=== PATIENT | male | born 1945 | race Caucasian/White ===

== ENCOUNTER 2016-07-23 17:01 | Outpatient (CLI) | payer MEDICARE, OTHER | END 2016-07-23 17:02 | disposition home or self-care (01) | DX: Z12.5 Encounter for screening for malignant neoplasm of prostate (principal); N52.9 Male erectile dysfunction, unspecified; N40.1 Benign prostatic hyperplasia with lower urinary tract symptoms; E78.5 Hyperlipidemia, unspecified; K21.9 Gastro-esophageal reflux disease without esophagitis; M72.0 Palmar fascial fibromatosis [Dupuytren]; I10 Essential (primary) hypertension | CPT/HCPCS: 36415; 80053; 80061; 85025; G0103 ==

== ENCOUNTER 2019-04-07 07:30 | Outpatient (CLI) | payer MEDICARE, BC ==
[2019-04-07 12:05] LABS: BASOPHILS % (AUTO) 0.6 %; EOSINOPHILS # (AUTO) 0.1 10^3/uL (0.0-0.7); EOSINOPHILS % (AUTO) 2.8 %; HGB - HEMOGLOBIN 14.1 g/dL (14.0-18.0); LYMPHOCYTES # (AUTO) 2.1 10^3/uL (1.5-3.5); LYMPHOCYTES % (AUTO) 42.9 %; MEAN CORPUSCULAR HEMOGLOBIN 30.9 pg (27.0-31.0); MEAN CORPUSCULAR HGB CONC 33.6 g/dL (32.0-36.0); MEAN CORPUSCULAR VOLUME 92.1 fL (80.0-94.0); MONOCYTES # (AUTO) 0.4 10^3/uL (0.0-1.0); MONOCYTES % (AUTO) 8.9 %; NEUTROPHILS # (AUTO) 2.2 10^3/uL (1.5-6.6); NEUTROPHILS % (AUTO) 44.6 %; PLT - PLATELET COUNT 281 10^3/uL (130-450); RED BLOOD COUNT 4.56 10^6/uL (4.70-6.10); RED CELL DISTRIBUTION WIDTH 15.2 % (12.0-15.0); WHITE BLOOD COUNT 4.9 x10^3/uL (4.8-10.8)
[2019-04-07 12:27] LABS: ALBUMIN 4.3 g/dL (3.2-5.5); ALBUMIN/GLOBULIN RATIO 1.5 (1.0-2.2); ALKALINE PHOSPHATASE 53 IU/L (42-121); ALT ALANINE AMINOTRANSFERASE 27 IU/L (10-60); AST ASPARTATE AMINOTRANSFERASE 30 IU/L (10-42); BUN - BLOOD UREA NITROGEN 17 mg/dL (6-20); CARBON DIOXIDE - CO2 26 mmol/L (21-32); CHLORIDE 105 mmol/L (101-111); CHOL/HDL RATIO 3.8 (<5.0); CHOLESTEROL 174 mg/dL; GFR - MDRD 73 (>89); GLUCOSE 94 mg/dL (70-100); HDL CHOLESTEROL 46 mg/dL; LDL CHOLESTEROL,CALCULATED 112 mg/dL; LDL/HDL RATIO 2.4 (<3.6); SODIUM 139 mmol/L (135-145); TOTAL PROTEIN 7.2 g/dL (6.7-8.2); VLDL CHOLESTEROL 16 mg/dL
[2019-04-07 12:29] LABS: CREATININE,URINE 154.1 mg/dL; MICROALBUM/CREATININE RATIO,UR 4.5 ug/mg (<30.0); MICROALBUMIN,URINE 0.7 mg/dL (0-300.0)
[2019-04-07 12:33] LABS: HB2 TOTAL 13.7 g/dL; HEMOGLOBIN A1C 0.57 g/dL
== END 2019-04-07 23:59 | disposition home or self-care (01) ==
LOC: LAB.WCP 07:30
PROVIDERS: ATTEND Family Medicine
DX: I10 Essential (primary) hypertension (principal); R73.01 Impaired fasting glucose; E78.5 Hyperlipidemia, unspecified; K21.9 Gastro-esophageal reflux disease without esophagitis; Z12.5 Encounter for screening for malignant neoplasm of prostate; R53.83 Other fatigue
CPT/HCPCS: 36415; 80053; 80061; 82043; 82570; 83036; 84443; 85025; G0103; 83721; 84153

== ENCOUNTER 2019-12-30 09:46 | Outpatient (CLI) | payer MEDICARE, BC ==
--- NOTE | 2019-12-30 10:41 | XRAY Report ---
PROCEDURE: Cervical Spine 2 View INDICATIONS: ARTHRITIS,CERVICAL SPINE TECHNIQUE: 2 view(s) of the cervical spine were acquired. COMPARISON: None. FINDINGS: Bones: No fractures or dislocations to the C7-T1 level. The lateral masses of C1 appear intact on t he odontoid view. No suspicious bony lesions. Moderate to severe multilevel disc space narrowing. No bridging anterior osteophytes. Soft tissues: No prevertebral soft tissue swelling. IMPRESSION: Multilevel degenerative changes. Reviewed by: Caterina Calhoun MD on 12/30/2019 10:40 AM PDT Approved by: Caterina Calhoun MD on 12/30/2019 10:40 AM PDT Station ID: [id number]
== END 2019-12-30 09:47 | disposition home or self-care (01) ==
LOC: DI 09:46
PROVIDERS: ATTEND Family Medicine
DX: M47.812 Spondylosis without myelopathy or radiculopathy, cervical region (principal)
CPT/HCPCS: 72040

== ENCOUNTER 2020-01-10 10:08 | Outpatient (CLI) | payer MEDICARE, BC ==
--- NOTE | 2020-01-10 11:22 | MRI Report ---
PROCEDURE: Cervical Spine W/O INDICATIONS: CERVICAL DISC DISORDER W/ RADICULOPATHY TECHNIQUE: Noncontrast sagittal T1 spin echo and T2 fast spin echo, sagittal STIR, foraminal oblique sagittal T2 fast spin echo, and axial gradient echo or T2 fast spin echo through the cervical spine. COMPARISON: Plain films dated 12.30.19 FINDINGS: Image quality: Excellent. Alignment and Curvature: There is mild, grade 1 retrolisthesis of C2 on C3 and C3 on C4. Mild grade 1 retrolisthesis of C5 on C6.. Bone Marrow: Marrow demonstrates normal overall signal. Spinal Cord: Visualized spinal cord has normal size and signal. No cerebellar tonsillar herniation. Paraspinous Soft Tissues: No paravertebral masses. Prevertebral soft tissues are normal in thicknes s. C2-C3: Mild disc desiccation and diffuse disc bulge with superimposed small central protrusion. Mild facet and uncovertebral hypertrophy. Mild canal stenosis. Mild bilateral foraminal stenosis. C3-C4: Mild disc height loss and desiccation. Mild diffuse disc bulge with superimposed left director phone olateral broad-based protrusion. Moderate facet and uncovertebral hypertrophy bilaterally. Mild canal stenosis. Severe bilateral foraminal stenosis. Bilateral C4 nerve root compression. C4-C5: Mild disc height loss and desiccation. Mild diffuse disc bulge. Mild facet and uncovertebral hypertrophy bilaterally. Mild canal stenosis. Mild bilateral foraminal stenosis. C5-C6: Moderate disc height loss and desiccation. Mild diffuse disc bulge with superimposed broad-ba sed right posterolateral broad-based protrusion/osteophyte. Moderate facet and uncovertebral hypertro phy bilaterally. Moderate canal stenosis. Severe bilateral foraminal stenosis. Bilateral C6 nerve jorge t compression. C6-C7: Moderate disc height loss and desiccation. Mild diffuse disc bulge. Moderate facet and uncove rtebral hypertrophy bilaterally. Mild canal stenosis. Severe bilateral foraminal stenosis with bilate ral C7 nerve root compression. C7-T1: Mild disc height loss and desiccation. Mild diffuse disc bulge. Mild facet and uncovertebral hypertrophy bilaterally. Mild canal stenosis. Mild bilateral foraminal stenosis. IMPRESSION: 1. Multilevel degenerative disc and facet disease, as well as uncovertebral hypertrophy. 2. Multilevel canal stenoses, worst at C5-C6, where there is moderate canal stenosis. 3. Multilevel foraminal stenoses, worst at C3-C4, C5-C6, and C6-C7, where there is associated intrafo raminal nerve root compression. Recommend correlation with clinical symptoms to ascertain relevance o f these findings. Reviewed by: Daniel Britton MD on 01/10/2020 11:20 AM PDT Approved by: Daniel Britton MD on 01/10/2020 11:20 AM PDT Station ID: [id number]
== END 2020-01-10 10:09 | disposition home or self-care (01) ==
LOC: DI 10:08
PROVIDERS: ATTEND Family Medicine
DX: M47.812 Spondylosis without myelopathy or radiculopathy, cervical region (principal); M50.31 Other cervical disc degeneration, high cervical region; M48.02 Spinal stenosis, cervical region; M43.12 Spondylolisthesis, cervical region; M50.21 Other cervical disc displacement, high cervical region; M47.813 Spondylosis without myelopathy or radiculopathy, cervicothoracic region; M48.03 Spinal stenosis, cervicothoracic region
CPT/HCPCS: 72141

== ENCOUNTER 2020-05-30 08:00 | Outpatient (CLI) | payer MEDICARE, BC ==
[2020-05-30 12:15] LABS: BASOPHILS % (AUTO) 0.2 %; HCT - HEMATOCRIT 41.2 % (42.0-52.0); HGB - HEMOGLOBIN 13.7 g/dL (14.0-18.0); LYMPHOCYTES # (AUTO) 0.5 10^3/uL (1.5-3.5); LYMPHOCYTES % (AUTO) 10.3 %; MEAN CORPUSCULAR HEMOGLOBIN 30.3 pg (27.0-31.0); MEAN CORPUSCULAR HGB CONC 33.3 g/dL (32.0-36.0); MEAN CORPUSCULAR VOLUME 91.2 fL (80.0-94.0); MEAN PLATELET VOLUME 10.1 fL (7.4-11.4); MONOCYTES # (AUTO) 0.4 10^3/uL (0.0-1.0); MONOCYTES % (AUTO) 6.8 %; NEUTROPHILS # (AUTO) 4.2 10^3/uL (1.5-6.6); NEUTROPHILS % (AUTO) 82.5 %; PLT - PLATELET COUNT 230 10^3/uL (130-450); RED BLOOD COUNT 4.52 10^6/uL (4.70-6.10); RED CELL DISTRIBUTION WIDTH 14.7 % (12.0-15.0); WHITE BLOOD COUNT 5.1 x10^3/uL (4.8-10.8)
[2020-05-30 12:22] LABS: ALBUMIN 3.9 g/dL (3.2-5.5); ALBUMIN/GLOBULIN RATIO 1.3 (1.0-2.2); ALKALINE PHOSPHATASE 45 IU/L (42-121); ALT ALANINE AMINOTRANSFERASE 30 IU/L (10-60); AST ASPARTATE AMINOTRANSFERASE 30 IU/L (10-42); BILIRUBIN,TOTAL 0.7 mg/dL (0.2-1.0); BUN - BLOOD UREA NITROGEN 17 mg/dL (6-20); CALCIUM 8.7 mg/dL (8.5-10.3); CARBON DIOXIDE - CO2 23 mmol/L (21-32); CHLORIDE 99 mmol/L (101-111); CHOL/HDL RATIO 3.1 (<5.0); CHOLESTEROL 148 mg/dL; CREATININE 1.1 mg/dL (0.6-1.2); GFR - MDRD 65 (>89); GLUCOSE 116 mg/dL (70-100); HDL CHOLESTEROL 48 mg/dL; LDL CHOLESTEROL,CALCULATED 91 mg/dL; LDL/HDL RATIO 1.9 (<3.6); POTASSIUM 3.6 mmol/L (3.5-5.0); SODIUM 132 mmol/L (135-145); TRIGLYCERIDES 44 mg/dL; VLDL CHOLESTEROL 9 mg/dL
[2020-05-30 12:30] LABS: THYROID STIMULATING HORMONE 0.77 uIU/mL (0.34-5.60)
== END 2020-05-30 23:59 | disposition home or self-care (01) ==
LOC: LAB.WCP 08:00
PROVIDERS: ATTEND Internal Medicine
DX: R53.83 Other fatigue (principal); R73.01 Impaired fasting glucose; I10 Essential (primary) hypertension; E78.5 Hyperlipidemia, unspecified; Z12.5 Encounter for screening for malignant neoplasm of prostate; N40.1 Benign prostatic hyperplasia with lower urinary tract symptoms; N13.8 Other obstructive and reflux uropathy; R50.9 Fever, unspecified; M79.10 Myalgia, unspecified site; Z20.822 Contact with and (suspected) exposure to COVID-19
CPT/HCPCS: 36415; 80053; 80061; 84443; 85025; G0103; U0004; 83721; 84153

== ENCOUNTER 2020-05-30 17:37 | Outpatient (CLI) | payer MEDICARE, BC | END 2020-05-30 17:38 | disposition home or self-care (01) | LOC: COV 17:37 | PROVIDERS: ATTEND Family Medicine | DX: R50.9 Fever, unspecified (principal); M79.10 Myalgia, unspecified site; R53.83 Other fatigue; Z20.822 Contact with and (suspected) exposure to COVID-19 ==

== ENCOUNTER 2021-01-31 19:28 | Outpatient (CLI) | payer MEDICARE, BC ==
--- NOTE | 2021-01-31 21:27 | Ultrasound Report ---
PROCEDURE: Duplex Ext Veins Right INDICATIONS: edema TECHNIQUE: Real-time imaging, as well as color and pulse Doppler interrogation, were performed of the lower extr emity deep veins from the inguinal ligament to the popliteal fossa. COMPARISON: None. FINDINGS: The deep veins are normally compressible, and free of intraluminal thrombus. Color and pu lse Doppler demonstrate normal phasic intraluminal flow. There is normal augmentation response to di stal compression maneuver. IMPRESSION: No right lower extremity DVT. Reviewed by: Klaus Chatman MD on 01/31/2021 9:26 PM PST Approved by: Klaus Chatman MD on 01/31/2021 9:26 PM PST Station ID: [id number]
== END 2021-01-31 19:29 | disposition home or self-care (01) ==
LOC: DI 19:28
PROVIDERS: ATTEND Physician Assistant Medical
DX: R60.9 Edema, unspecified (principal)

== ENCOUNTER 2022-01-06 21:26 | Day surgery (SDC) | payer MEDICARE, BC ==
[~2022-01-06 21:26] MED LIST: LACTATED RINGERS 1,000 ML IV ONE
--- NOTE | 2022-01-06 21:41 | ED Physician Documentation ---
History of Present Illness - Stated complaint Stated Complaint: OBJECT IN THROAT - Chief complaint Chief Complaint: Heent - History obtained from History obtained from: Patient - History of Present Illness Timing: Enter time (17:30) Pain level now: 4 Improved by: no ameliorating factors Worsened by: any PO intake including fluids exacerbates the pain - Additonal information Additional information: c/o sudden onset low midline chest pain while eating dinner at approximately 5 :30 PM. He was eating pasta with chicken and had just swallowed food when the pain began. Since onset he has not been able to tolerate any PO including sips of liquids. He says he has had a few previous, similar episodes but previous episodes were self-limited and thus he has not been evaluated for this until tonight Review of Systems Cardiac: reports: Chest pain / pressure. denies: Palpitations Respiratory: reports: Reviewed and negative GI: reports: Vomiting (vomits when he tries to take any PO). denies: Abdominal Pain, Abdominal Swelling, Nausea PD PAST MEDICAL HISTORY - Past Medical History Past Medical History: Yes Cardiovascular: Hypertension, High cholesterol GI: GERD - Past Surgical History Past Surgical History: No - Allergies Allergies/Adverse Reactions: Allergies Allergy/AdvReac Type Severity Reaction Status Date / Time No Known Drug Allergies Allergy Verified 01/06/22 21:34 PD ED PE NORMAL - Vitals Vital signs reviewed: Yes - General General: Alert and oriented X 3, Well developed/nourished, Other (appears uncomfortable at times during H+P; he is holding emesis bag and frequently spits saliva into this) - Cardiac Cardiac: RRR, No murmur - Respiratory Respiratory: No respiratory distress, Clear bilaterally - Abdomen Abdomen: Soft, Non tender, Non distended - Derm Derm: Normal color, Warm and dry Results - Vitals Vitals: Vital Signs - 24 hr 01/06/22 01/06/22 01/07/22 21:34 23:37 00:35 Temperature 36.6 C 36.6 C 36.4 C L Heart Rate 77 67 77 Respiratory 16 16 17 Rate Blood Pressure 160/90 H 162/90 H 135/77 H O2 Saturation 96 99 97 01/07/22 01/07/22 01/07/22 00:40 00:47 00:50 Temperature Heart Rate 92 90 83 Respiratory 18 19 16 Rate Blood Pressure 128/75 118/76 129/74 O2 Saturation 96 98 97 01/07/22 01/07/22 01/07/22 00:55 01:04 01:25 Temperature 36.4 C L 36.4 C L Heart Rate 80 81 89 Respiratory 16 16 16 Rate Blood Pressure 134/70 H 136/70 H 145/87 H O2 Saturation 97 97 96 01/07/22 01/07/22 01/07/22 01:38 01:54 02:09 Temperature 36.5 C 36.4 C L 36.3 C L Heart Rate 69 70 76 Respiratory 16 18 18 Rate Blood Pressure 130/71 129/70 129/70 O2 Saturation 96 96 95 01/07/22 01/07/22 01/07/22 02:39 03:08 04:09 Temperature 36.9 C 36.7 C 36.5 C Heart Rate 78 76 75 Respiratory 18 18 18 Rate Blood Pressure 126/74 130/79 124/75 O2 Saturation 96 96 95 01/07/22 01/07/22 01/07/22 05:07 06:13 07:29 Temperature 36.8 C 36.5 C 36.9 C Heart Rate 69 72 66 Respiratory 18 18 16 Rate Blood Pressure 123/73 127/72 127/77 O2 Saturation 96 95 95 Oxygen O2 Source Room air - Labs Labs: Laboratory Tests 01/06/22 01/06/22 22:12 22:12 WBC 7.4 RBC 4.97 Hgb 14.9 Hct 44.8 MCV 90.1 MCH 30.0 MCHC 33.3 RDW 14.5 Plt Count 311 MPV 9.7 Neut # (Auto) 4.1 Lymph # (Auto) 2.5 [place] # (Auto) 0.6 Eos # (Auto) 0.1 Baso # (Auto) 0.1 Absolute Nucleated RBC 0.00 Nucleated RBC % 0.0 Sodium 140 Potassium 3.8 Chloride 105 Carbon Dioxide 25 Anion Gap 10.0 BUN 15 Creatinine 1.0 Estimated GFR (MDRD) 73 L Glucose 103 H Calcium 9.7 Total Bilirubin 0.6 AST 29 ALT 25 Alkaline Phosphatase 58 Total Protein 8.0 Albumin 4.5 Globulin 3.5 Albumin/Globulin Ratio 1.3 Lipase 63 H PD MEDICAL DECISION MAKING - ED course Complexity details: reviewed results, re-evaluated patient, considered differential, d/w patient ED course: HPI c/w esophageal food bolus impaction, does not improve after IV glucagon 1mg. He did try to drink some water after the glucagon was given but immediately vomited the water back up, felt like it never went all the way down. D/W Dr. Cannon who came to ED and subsequently took patient to OR for EGD Departure - Departure Disposition: ED Transfer to [facility] Clinical Impression: Esophageal obstruction Condition: Good Discharge Date/Time: 01/07/22 00:10
--- OUTSIDE RECORDS SUMMARY | 2022-01-06 21:42 | EXTERNAL MEDICAL SUMMARY RPT | Continuity of Care Document ---
:1945 Author Organization [facility] Address [address] [place] [address] Phone Allergies No information. Encounters No information. Functional Status No information. Immunizations No information. Medications No information. Problems No information. Procedures No information. Results/Labs test date author facility value unit interpret ation Result panel 1 (unknown) (no (unknown) (unknown) (no value) (units (unk nown) date) unknown) (unknown) (no (unknown) (unknown) [address] [place] [address] (units (unknown) date) unknown) (unknown) (no (unknown) (unknown) [place] (units ( unknown) date) [id number] unknown) (unknown) (no (unknown) (unknown) [facility] (units (unknown) date) unknown) (unknown) (no (unknown) (unknown) Magnetic (units (unkno wn) date) Resonance Report unknown) (unknown) (no (unknown) (unknown) Signed (units (unkno wn) date) unknown) (unknown) (no (unknown) (unknown) (no value) (units (unk nown) date) unknown) (unknown) (no (unknown) (unknown) 10/26/21 (units (unkno wn) date) unknown) (unknown) (no (unknown) (unknown) 1. At least (units (un known) date) high-grade and unknown) possibly complete tearing of the posterior tibialis (unknown) (no (unknown) (unknown) 2. Pes planus and (units (unknown) date) suspected mild unknown) hindfoot valgus. (unknown) (no (unknown) (unknown) 3. Medial bowing (units (unknown) date) of the tibiospring unknown) ligament and superomedial band of the (unknown) (no (unknown) (unknown) 4. Chronic (units (unk nown) date) low-grade sprains unknown) of the anterior talofibular ligament and (unknown) (no (unknown) (unknown) 5. Mild peroneus (units (unknown) date) brevis and longus unknown) tendinosis and tenosynovitis. (unknown) (no (unknown) (unknown) 6. Moderate (units (un known) date) Achilles unknown) tendinosis. Small retrocalcaneal bursal effusion. (unknown) (no (unknown) (unknown) Anterior (units (unkno wn) date) structures: The unknown) tibialis anterior, extensor hallucis longus, and (unknown) (no (unknown) (unknown) Approved by: (units (u nknown) date) tasha De León M.D. on 10/26/2021 at 20:15 (unknown) (no (unknown) (unknown) Bones and joints: (units (unknown) date) No bone marrow unknown) contusions or fractures. No hindfoot (unknown) (no (unknown) (unknown) COMPARISON: None. (units (unknown) date) unknown) (unknown) (no (unknown) (unknown) Dictated by: (units (u nknown) date) tasha De León M.D. on 10/26/2021 at 19:58 (unknown) (no (unknown) (unknown) FINDINGS: (units (unkn own) date) unknown) (unknown) (no (unknown) (unknown) IMPRESSION: (units (un known) date) unknown) (unknown) (no (unknown) (unknown) INDICATIONS: (units (u nknown) date) Posterior tibial unknown) tendinitis, right leg (unknown) (no (unknown) (unknown) Image quality: (units (unknown) date) Excellent. unknown) (unknown) (no (unknown) (unknown) Lateral (units (unkno wn) date) structures: unknown) Thickening of the anterior talofibular ligament and (unknown) (no (unknown) (unknown) Medial and (units (unk nown) date) lateral bands of unknown) the plantar fascia are of normal thickness. No (unknown) (no (unknown) (unknown) Medial (units (unkno wn) date) structures: The unknown) deep fibers of the deltoid ligament are intact. The (unknown) (no (unknown) (unknown) Noncontrast (units (un known) date) sagittal T1 spin unknown) echo and T2 fast spin echo with fat saturation, (unknown) (no (unknown) (unknown) Posterior and (units ( unknown) date) plantar unknown) structures: Thickening of the distal Achilles tendon is (unknown) (no (unknown) (unknown) TECHNIQUE: (units (unk nown) date) unknown) (unknown) (no (unknown) (unknown) and T2 fast spin (units (unknown) date) echo with fat unknown) saturation through the ankle/hindfoot. (unknown) (no (unknown) (unknown) around the talar (units (unknown) date) head. unknown) (unknown) (no (unknown) (unknown) continuity. Mild (units (unknown) date) peroneus brevis unknown) and longus tendinosis and tenosynovitis. (unknown) (no (unknown) (unknown) density fast spin (units (unknown) date) echo and T2 fast unknown) spin echo with fat saturation, coronal T1 (unknown) (no (unknown) (unknown) digiti quinti (units ( unknown) date) muscle atrophy to unknown) suggest Garcia neuropathy. (unknown) (no (unknown) (unknown) digitorum longus (units (unknown) date) tendons appear unknown) intact. The dorsal talonavicular ligament (unknown) (no (unknown) (unknown) effacement of the (units (unknown) date) normal fat signal unknown) in the sinus tarsi. (unknown) (no (unknown) (unknown) insertion. No (units ( unknown) date) significant tendon unknown) retraction is seen. There is prominent (unknown) (no (unknown) (unknown) intact. The (units (un known) date) posterior tibial unknown) neurovascular bundle appears normal within the (unknown) (no (unknown) (unknown) joint effusion is (units (unknown) date) present unknown) posteriorly. (unknown) (no (unknown) (unknown) joint. Mild (units (un known) date) sagging of the unknown) midfoot and slightly increased vertical orientation (unknown) (no (unknown) (unknown) ligament and the (units (unknown) date) superomedial band unknown) of the spring ligament are bowed medially (unknown) (no (unknown) (unknown) ligament is (units (un known) date) grossly intact. unknown) The anterior and posterior tibiofibular ligaments (unknown) (no (unknown) (unknown) ligament is most (units (unknown) date) likely secondary unknown) to remote prior sprains. The posterior (unknown) (no (unknown) (unknown) ligament. (units (unkn own) date) unknown) (unknown) (no (unknown) (unknown) mild (units (unkno wn) date) tenosynovitis. The unknown) flexor digitorum longus, and flexor hallucis longus (unknown) (no (unknown) (unknown) osteochondral (units ( unknown) date) injuries of the unknown) talar dome. Mild marginal osteophyte formation (unknown) (no (unknown) (unknown) significant (units (un known) date) tendon retraction. unknown) The more proximal tendon demonstrates (unknown) (no (unknown) (unknown) talar head. There (units (unknown) date) is at least unknown) high-grade partial tearing of the posterior (unknown) (no (unknown) (unknown) talus are (units (unkn own) date) suspicious for pes unknown) planus. There is suspected mild hindfoot valgus. (unknown) (no (unknown) (unknown) tendon at the (units ( unknown) date) level of the talar unknown) head approximately 2 cm proximal to the (unknown) (no (unknown) (unknown) tenosynovitis. (units (unknown) date) unknown) (unknown) (no (unknown) (unknown) the level of the (units (unknown) date) talar neck unknown) approximately 2 cm from the navicular insertion. (unknown) (no (unknown) (unknown) the mortise (units (un known) date) joint. There is unknown) mild degenerative spurring at the dorsal (unknown) (no (unknown) (unknown) thickened with (units (unknown) date) intermediate unknown) signal intensity. (unknown) (no (unknown) (unknown) tunnel, without (units (unknown) date) extrinsic mass unknown) effect. (unknown) (no (unknown) (unknown) with moderate (units ( unknown) date) tendinosis. A unknown) small amount of retrocalcaneal bursal fluid is (unknown) (no (unknown) (unknown) [id number] (units (unkn own) date) unknown) (unknown) (no (unknown) (unknown) Accession Number: (units (unknown) date) [id number] unknown) (unknown) (no (unknown) (unknown) Age/Sex: 76 / M (units (unknown) date) Date of Service: unknown) (unknown) (no (unknown) (unknown) : 1945 (units (unknown) date) Acct:[id number] unknown) (unknown) (no (unknown) (unknown) Loc: MRI (units (unkno wn) date) unknown) (unknown) (no (unknown) (unknown) No (units (unkno wn) date) unknown) (unknown) (no (unknown) (unknown) Ordering (units (unkno wn) date) Provider: unknown) Trina Argueta MD (unknown) (no (unknown) (unknown) PROCEDURE: MR (units ( unknown) date) ANKLE RT WO CON unknown) (unknown) (no (unknown) (unknown) Patient: (units (unkno wn) date) Taryn Verdin unknown) MR#: [id number] (unknown) (no (unknown) (unknown) Procedure: MR (units ( unknown) date) ankle RT wo con unknown) (unknown) (no (unknown) (unknown) Subtalar (units (unkno wn) date) unknown) (unknown) (no (unknown) (unknown) There is (units (unkno wn) date) unknown) (unknown) (no (unknown) (unknown) abductor (units (unkno wn) date) unknown) (unknown) (no (unknown) (unknown) appears mildly (units (unknown) date) unknown) (unknown) (no (unknown) (unknown) around the (units (unk nown) date) unknown) (unknown) (no (unknown) (unknown) axial proton (units (u nknown) date) unknown) (unknown) (no (unknown) (unknown) calcaneofibular (units (unknown) date) unknown) (unknown) (no (unknown) (unknown) coalitions. No (units (unknown) date) unknown) (unknown) (no (unknown) (unknown) consistent (units (unk nown) date) unknown) (unknown) (no (unknown) (unknown) extensor (units (unkno wn) date) unknown) (unknown) (no (unknown) (unknown) is seen at (units (unk nown) date) unknown) (unknown) (no (unknown) (unknown) navicular (units (unkn own) date) unknown) (unknown) (no (unknown) (unknown) of the (units (unkno wn) date) unknown) (unknown) (no (unknown) (unknown) present. (units (unkno wn) date) unknown) (unknown) (no (unknown) (unknown) remain in (units (unkn own) date) unknown) (unknown) (no (unknown) (unknown) spin echo (units (unkn own) date) unknown) (unknown) (no (unknown) (unknown) spring ligament (units (unknown) date) unknown) (unknown) (no (unknown) (unknown) talofibular (units (un known) date) unknown) (unknown) (no (unknown) (unknown) talonavicular (units ( unknown) date) unknown) (unknown) (no (unknown) (unknown) tarsal (units (unkno wn) date) unknown) (unknown) (no (unknown) (unknown) tendinosis and (units (unknown) date) unknown) (unknown) (no (unknown) (unknown) tendon at (units (unkn own) date) unknown) (unknown) (no (unknown) (unknown) tendons are (units (un known) date) unknown) (unknown) (no (unknown) (unknown) tibialis (units (unkno wn) date) unknown) (unknown) (no (unknown) (unknown) tibiospring (units (un known) date) unknown) Social History No information. Vital Signs No information.
[2022-01-06] MEDS ORDERED: GLUCAGON 1 MG/ML VIAL IVP STA (21:59)
[2022-01-06 23:15] LABS: BASOPHILS # (AUTO) 0.1 10^3/uL (0.0-0.1); BASOPHILS % (AUTO) 0.7 %; EOSINOPHILS # (AUTO) 0.1 10^3/uL (0.0-0.7); EOSINOPHILS % (AUTO) 1.4 %; HCT - HEMATOCRIT 44.8 % (42.0-52.0); HGB - HEMOGLOBIN 14.9 g/dL (14.0-18.0); LYMPHOCYTES # (AUTO) 2.5 10^3/uL (1.5-3.5); LYMPHOCYTES % (AUTO) 34.1 %; MEAN CORPUSCULAR HGB CONC 33.3 g/dL (32.0-36.0); MEAN CORPUSCULAR VOLUME 90.1 fL (80.0-94.0); MEAN PLATELET VOLUME 9.7 fL (7.4-11.4); MONOCYTES # (AUTO) 0.6 10^3/uL (0.0-1.0); MONOCYTES % (AUTO) 8.6 %; NEUTROPHILS # (AUTO) 4.1 10^3/uL (1.5-6.6); NEUTROPHILS % (AUTO) 54.8 %; PLT - PLATELET COUNT 311 10^3/uL (130-450); RED BLOOD COUNT 4.97 10^6/uL (4.70-6.10); RED CELL DISTRIBUTION WIDTH 14.5 % (12.0-15.0); WHITE BLOOD COUNT 7.4 x10^3/uL (4.8-10.8)
[2022-01-06 23:25] LABS: ALBUMIN 4.5 g/dL (3.2-5.5); ALBUMIN/GLOBULIN RATIO 1.3 (1.0-2.2); BILIRUBIN,TOTAL 0.6 mg/dL (0.2-1.0); CALCIUM 9.7 mg/dL (8.5-10.3); POTASSIUM 3.8 mmol/L (3.5-5.0)
[2022-01-06] MEDS ORDERED: MIDAZOLAM 2 MG/2 ML VIAL ONE (23:47)
[2022-01-06] MEDS ORDERED: ROCURONIUM 50 MG/5 ML VIAL ONE (23:47)
[2022-01-06] MEDS ORDERED: fentaNYL 100 MCG/2 ML VIAL ONE (23:47)
[2022-01-06] MEDS ORDERED: PROPOFOL 200 MG/20 ML VIAL IVP ONE (23:49)
--- NOTE | 2022-01-07 00:01 | ANESTHESIA ---
Pre-Anesthesia VS, & Labs - Diagnosis foreign body in esophagus - Procedure EGD, removal of foreign body (food bolus) Vital Signs: Temp Pulse Resp BP Pulse Ox O2 Flow Rate 36.6 C 67 16 162/90 H 99 01/06/22 23:37 01/06/22 23:37 01/06/22 23:37 01/06/22 23:37 01/06/22 23:37 Height: 6 ft Weight (kg): 92.7 kg Body Mass Index: 27.7 BMI Classification: Overweight - NPO Other (chicken 8pm) - Lab Results Current Lab Results: Laboratory Tests 01/06/22 22:12: Sodium 140, Potassium 3.8, Chloride 105, Carbon Dioxide 25, Anion Gap 10.0, BUN 15, Creatinine 1.0, Estimated GFR (MDRD) 73 L, Glucose 103 H , Calcium 9.7, Total Bilirubin 0.6, AST 29, ALT 25, Alkaline Phosphatase 58, Total Protein 8.0, Albumin 4.5, Globulin 3.5, Albumin/Globulin Ratio 1.3, Lipase 63 H 01/06/22 22:12: WBC 7.4, RBC 4.97, Hgb 14.9, Hct 44.8, MCV 90.1, MCH 30.0, MCHC 33.3, RDW 14.5, Plt Count 311, MPV 9.7, Neut # (Auto) 4.1, Lymph # (Auto) 2.5, [place] # (Auto) 0.6, Eos # (Auto) 0.1, Baso # (Auto) 0.1, Absolute Nucleated RBC 0.00, Nucleated RBC % 0.0 Fish Bones: 01/06/22 22:12 01/06/22 22:12 Home Medications and Allergies Allergies/Adverse Reactions: Allergies Allergy/AdvReac Type Severity Reaction Status Date / Time No Known Drug Allergies Allergy Verified 01/06/22 21:34 Anes History & Medical History - Anesthetic History Anesthesia Complications: reports: No previous complications - Medical History Cardiovascular: reports: Hypertension, High cholesterol Pulmonary: reports: None Gastrointestinal: reports: GERD Smoking Status: Never smoker Psychosocial: reports: Alcohol (2 daily) History of Cancer?: No - Surgical History General: reports: Appendectomy Exam General: Alert, Oriented x3 Dental: WNL Mouth Opening: Greater than 4 Fingerbreadths Neck Mobility: Reduced Mallampati classification: II Thyromental Distance: greater than 6 cm Respiratory: Lungs clear Cardiovascular: Regular rate Plan Anesthesia Type: General Consent for Procedure(s) Verified and Reviewed: Yes Code Status: Attempt Resuscitation ASA classification: 2-Mild systemic disease Is this case an emergency?: Yes
--- NOTE | 2022-01-07 00:03 | HISTORY & PHYSICAL EXAMINATION ---
History and Physical - History and Physical Brief H&P (full note on paper in chart) CC/HPI:This is a 76-year-old gentleman who reports eating some pasta with chicken at approximately 5 PM when he noted a piece of chicken got "stuck" in his esophagus. He has been unable to tolerate any additional p.o. intake or even his own secretions since that time. The patient has had 2 previous episodes of meats such as steak getting stuck, but never required any intervention in the past. He believes he had an upper endoscopy 1 time many years ago and was told he had a small hiatal hernia. He takes omeprazole at home for GERD 5 days a week. PMH: Hypertension, high cholesterol, GERD, hiatal hernia Past surgical history: Appendectomy, and right inguinal hernia repair as a child Allergies: No known medical allergies Social history: The patient denies any tobacco or drug use, he drinks 2 alcoholic beverages per day. He is retired and lives with his , Meghan. Family history: Patient's father had coronary artery disease and a CABG, the patient's mother had dementia and hypertension. Both are . Review of systems: A complete 10 point review of systems is negative except for HPI and past medical history Physical exam: Please see H&P in chart Assessment and plan: This is a 76-year-old gentleman with an impacted esophageal food bolus. I discussed the risks, benefits, and alternatives of EGD with removal of the impacted food bolus with the patient and his . We discussed risks including bleeding, esophageal tear, or other gastrointestinal perforation. We discussed the need for general anesthetic and endotracheal intubation to reduce the risk of aspiration. The patient and his voiced understanding, their questions were answered, and they wish to proceed with the procedure at this time. A consent was signed by the patient in the emergency department. Plan to proceed with emergent EGD with foreign body removal, possible biopsy, possible dilation. -Plan to continue PPI -N.p.o. until after procedure, then advance diet as tolerated -I will plan to keep the patient overnight after his procedure given that he will require general anesthetic. He will likely discharge home tomorrow morning.
[2022-01-07] MEDS ORDERED: ePHEDrine 50 MG/ML VIAL IVP ONE (00:21)
[2022-01-07] MEDS ORDERED: ONDANSETRON 4 MG/2 ML VIAL ONE (00:30)
[2022-01-07] MEDS ORDERED: SUGAMMADEX 200 MG/2 ML VIAL IVP ONE (00:30)
[2022-01-07] MEDS ORDERED: ONDANSETRON 4 MG/2 ML VIAL IVP PRN ×2 (00:38→00:56)
[2022-01-07] MEDS ORDERED: PHENOL THROAT SPRAY 177 ML MM PRN (00:39)
[2022-01-07] MEDS ORDERED: fentaNYL 100 MCG/2 ML VIAL IVP PRN (00:56)
[2022-01-07] MEDS ORDERED: ATROPINE ABBOJECT 1 MG/10 ML SYRINGE IVP PRN (00:56)
[2022-01-07] MEDS ORDERED: HYDROmorphone 0.5 MG/0.5 ML SYRINGE IVP PRN (00:56)
[2022-01-07] MEDS ORDERED: ePHEDrine 50 MG/ML VIAL IVP PRN (00:56)
[2022-01-07] MEDS ORDERED: METOCLOPRAMIDE 10 MG/2 ML VIAL IVP PRN (00:56)
[2022-01-07] MEDS ORDERED: MORPHINE 2 MG/ML CARPUJECT IVP PRN (00:56)
[2022-01-07] MEDS ORDERED: NALOXONE 0.4 MG/ML VIAL IVP PRN (00:56)
[2022-01-07] MEDS ORDERED: LACTATED RINGERS 1,000 ML IV SCH (01:00)
--- NOTE | 2022-01-07 01:03 | ANESTHESIA POST OP EVALUATION ---
Anesthesia Post Eval - Post Anesthesia Eval Vitals: Last Vital Signs Temp 36.4 C L 01/07/22 00:35 Pulse 83 01/07/22 00:50 Resp 16 01/07/22 00:50 BP 129/74 01/07/22 00:50 Pulse Ox 97 01/07/22 00:50 O2 Flow Rate CV Function Including HR & BP: Stable Pain Control: Satisfactory Nausea & Vomiting: Negative Mental Status: Baseline Respiratory Status: Airway Patent Hydration Status: Satisfactory Anesthesia Complications: None
[2022-01-07 08:52] VITALS: BP 127/77
--- NOTE | 2022-01-07 08:55 | Discharge Plan ---
Discharge Plan Problem Reviewed?: Yes Disposition: Home, Self Care Condition: Good Diet: Soft Activity Restrictions: No Restrictions No Smoking: If you smoke, Please STOP! Call for help. Follow-up with: Anna Hurtado PA-C [Primary Care Provider] -
--- NOTE | 2022-01-07 08:57 | DISCHARGE SUMMARY ---
Discharge Summary Admit Date: 01/07/22 Discharge Date: 01/07/22 Discharging Provider: Dr. Garcia Code Status: Attempt Resuscitation Condition at Discharge: Good Discharge Disposition: 01 Home, Self Care - DIAGNOSES Admission Diagnoses: impacted esophageal food bolus Discharge Diagnoses with Status of Each Condition: impacted esophageal food bolus, resolved - HPI History of Present Illness: Patient presented after eating pasta and chicken. Food became "stuck" in esophagus about 6 hours prior to presentation. Unable to swallow secretions. - CONSULTS | PROCEDURES Consultations: none Procedures: EGD with removal of foreign body and biopsy - HOSPITAL COURSE Hospital Course: Patient admitted and taken to endoscopy for procedure. Post op, he did well and was able to tolerate a diet. He is ambulating without difficulty. He has no pain this AM. He is stable for discharge home with a soft diet. - ALLERGIES Allergies/Adverse Reactions: Allergies Allergy/AdvReac Type Severity Reaction Status Date / Time No Known Drug Allergies Allergy Verified 01/06/22 21:34 - PHYSICAL EXAM AT DISCHARGE General Appearance: positive: No acute distress, Alert Eyes Bilateral: positive: Normal inspection Respiratory: positive: No respiratory distress Cardiovascular: positive: Regular rate & rhythm Abdomen: positive: No distention Extremities: positive: Non-tender, Full ROM Neurologic/Psychiatric: positive: Oriented x3 - LABS Result Diagrams: 01/06/22 22:12 01/06/22 22:12 - FOLLOW UP Follow Up: Dr. Garcia in 2 weeks - TIME SPENT Time Spent in Discharge (Minutes): 20
== END 2022-01-07 08:45 | disposition home or self-care (01) ==
LOC: ED 21:26 → SDS 23:52 → MS2 01-07 01:16 → SDS 01-07 08:45
PROVIDERS: ATTEND Surgery
PROC: 0DB58ZX Excision of Esophagus, Via Natural or Artificial Opening Endoscopic, Diagnostic (ICD-10-PCS; 2022-01-07)
PROC: 0DB68ZX Excision of Stomach, Via Natural or Artificial Opening Endoscopic, Diagnostic (ICD-10-PCS; 2022-01-07)
PROC: 0DC48ZZ Extirpation of Matter from Esophagogastric Junction, Via Natural or Artificial Opening Endoscopic (ICD-10-PCS; principal; 2022-01-07 23:50)
DX: T18.128A Food in esophagus causing other injury, initial encounter (principal); X58.XXXA Exposure to other specified factors, initial encounter; B96.81 Helicobacter pylori [H. pylori] as the cause of diseases classified elsewhere; K29.70 Gastritis, unspecified, without bleeding; K21.9 Gastro-esophageal reflux disease without esophagitis; I10 Essential (primary) hypertension
CPT/HCPCS: 36415; 43239; 43247; 80053; 83690; 85025; 96374; 99283; 99285; J7120

== ENCOUNTER 2022-03-25 08:45 | Day surgery (SDC) | payer MEDICARE, OTHER ==
[2022-03-25] MEDS ORDERED: PROPOFOL 200 MG/20 ML VIAL IVP ONE ×2 (09:05→09:49)
[2022-03-25] MEDS ORDERED: LACTATED RINGERS 1,000 ML IV ONE ×2 (09:12→09:57)
--- NOTE | 2022-03-25 09:23 | ANESTHESIA ---
Pre-Anesthesia VS, & Labs - Diagnosis Gerd, dysphagia - Procedure EGD, possible dilation Vital Signs: Temp Pulse Resp BP Pulse Ox O2 Flow Rate 36.4 C L 63 13 149/88 H 96 03/25/22 09:01 03/25/22 09:01 03/25/22 09:01 03/25/22 09:01 03/25/22 09:01 Height: 6 ft Weight (kg): 92 kg Body Mass Index: 27.5 BMI Classification: Overweight - NPO >8 hours, Other Last Fluid Intake: black coffee 0600 Last Food Intake: no solids >8hrs Home Medications and Allergies Atorvastatin [Lipitor] 20 mg PO QPM 03/04/22 Losartan [Cozaar] 50 mg PO DAILY 03/04/22 Omeprazole Magnesium 20 mg PO DAILY 03/04/22 Allergies/Adverse Reactions: Allergies Allergy/AdvReac Type Severity Reaction Status Date / Time No Known Drug Allergies Allergy Verified 01/06/22 21:34 Anes History & Medical History - Anesthetic History Anesthesia Complications: reports: No previous complications Family history of Anesthesia Complications: Denies Family history of Malignant Hyperthermia: Denies - Medical History Cardiovascular: reports: Hypertension, High cholesterol Pulmonary: reports: None Gastrointestinal: reports: GERD Urinary: reports: None Musculoskeletal: reports: None, Osteoarthritis Endocrine/Autoimmune: reports: None Skin: reports: None Smoking Status: Never smoker Psychosocial: reports: Alcohol (2 drinks/day) - Surgical History General: reports: Appendectomy, Colonoscopy, EGD, Other Exam General: Alert, Oriented x3, Cooperative Dental: WNL Mouth Opening: Greater than 4 Fingerbreadths Neck Mobility: Normal Mallampati classification: II Thyromental Distance: greater than 6 cm Respiratory: Lungs clear Cardiovascular: Regular rate Plan Anesthesia Type: General, Total IV Consent for Procedure(s) Verified and Reviewed: Yes Code Status: Attempt Resuscitation ASA classification: 2-Mild systemic disease Is this case an emergency?: No
[2022-03-25 10:17] VITALS: BP 122/79
--- NOTE | 2022-03-25 10:17 | ANESTHESIA POST OP EVALUATION ---
Anesthesia Post Eval - Post Anesthesia Eval Vitals: Last Vital Signs Temp 36.6 C 03/25/22 09:57 Pulse 66 03/25/22 10:16 Resp 14 03/25/22 10:16 BP 122/79 03/25/22 10:16 Pulse Ox 97 03/25/22 10:16 O2 Flow Rate CV Function Including HR & BP: Stable Pain Control: Satisfactory Nausea & Vomiting: Negative Mental Status: Baseline Respiratory Status: Airway Patent Hydration Status: Satisfactory Anesthesia Complications: None
== END 2022-03-25 08:46 | disposition home or self-care (01) ==
LOC: SDS 08:45
PROVIDERS: ATTEND Surgery
PROC: 0DB78ZX Excision of Stomach, Pylorus, Via Natural or Artificial Opening Endoscopic, Diagnostic (ICD-10-PCS; principal; 2022-03-25 10:30)
DX: K21.9 Gastro-esophageal reflux disease without esophagitis (principal); R13.10 Dysphagia, unspecified; Z87.19 Personal history of other diseases of the digestive system; K29.50 Unspecified chronic gastritis without bleeding; K44.9 Diaphragmatic hernia without obstruction or gangrene
CPT/HCPCS: 43239; 43249; J7120